=== PATIENT | male | born 1960 | race Caucasian/White ===

== ENCOUNTER 2025-02-16 19:08 | Emergency (ER) | payer MEDICARE, SELFPAY ==
[2025-02-16] VITALS (14 sets, daily range): BP systolic 112–137; BP diastolic 52–67; PULSE 75–96; RESP 10–35; TEMP 36.2; O2SAT 93–98; BMI 30.4
--- NOTE | 2025-02-16 19:47 | ED.SYNCOPE ---
HPI - Syncope <Armando Zimmer MD - Last Filed: 02/19/25 08:53> General Chief Complaint: Unresponsive Stated Complaint: OD, narcan, GCS 14 Time Seen by Provider: 02/16/25 19:09 Source: EMS Mode of arrival: EMS History of Present Illness HPI narrative: Patient brought in by ambulance from patient's local storage facility. Blood sugar 250. Patient does not recall any chest pain abdominal pain back pain headache or dizziness prior to syncope. Denies any injury from the syncopal episode. Patient did awake with Narcan. Patient denies any use and opiate use. However had history of opiate abuse. 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 He said 1 month ago he was at [facility] for pneumonia. Patient in no distress at this time. Related Data Allergies Allergy/AdvReac Type Severity Reaction Status Date / Time No Known Drug Allergies Allergy Verified 02/16/25 19:22 Review of Systems <Armando Zimmer MD - Last Filed: 02/19/25 08:53> Review of Systems Narrative: GENERAL: Negative chills, fatigue, malaise, fever, sweats. HEENT: Negative sinus pain, ear pain, sore throat RESPIRATORY: Negative dyspnea, cough CARDIOVASCULAR: Negative chest pain, palpitations, positive syncope GASTROINTESTINAL: Negative vomiting, nausea, abdominal pain : Negative dysuria, frequency, hematuria MUSCULOSKELETAL: Negative muscle or bony pain SKIN: Negative rash, skin lesions NEUROLOGIC: Negative weakness, numbness ROS Unobtainable: All systems reviewed & are unremarkable except as noted in HPI and below Patient History <Armando Zimmer MD - Last Filed: 02/19/25 08:53> Social History Smoking Status: Current every day smoker Smoking Status: Current every day smoker Exam <Armando Zimmer MD - Last Filed: 02/19/25 08:53> Narrative Exam Narrative: GENERAL: in no distress, not toxic not dyspneic HEAD: Normocephalic. EYES: Pupils equal round ENT: Mucous membranes moist. NECK: Trachea midline. CARDIOVASCULAR: Regular rate and rhythm RESPIRATORY: Clear to auscultation. Breath sounds equal bilaterally. No wheezes, rales, or rhonchi. GASTROINTESTINAL: Abdomen soft, non-tender BACK: No flank tenderness. EXTREMITIES: No gross deformities. NEURO: AOx4. 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 Elevate each leg without drift. Fast exam is negative SKIN: Warm and dry PSYCH: Not anxious, is cooperative Initial Vital Signs Initial Vital Signs: Vital Signs Temperature 97.1 F L 02/16/25 19:11 Pulse Rate 82 02/16/25 19:11 Respiratory Rate 16 02/16/25 19:11 Blood Pressure 117/52 L 02/16/25 19:11 Pulse Oximetry 94 02/16/25 19:11 Oxygen Delivery Method Room Air 02/16/25 19:11 <Isabel Klein DO - Last Filed: 02/17/25 04:40> Initial Vital Signs Initial Vital Signs: Vital Signs Temperature 97.1 F L 02/16/25 19:11 Pulse Rate 82 02/16/25 19:11 Respiratory Rate 16 02/16/25 19:11 Blood Pressure 117/52 L 02/16/25 19:11 Pulse Oximetry 94 02/16/25 19:11 Oxygen Delivery Method Room Air 02/16/25 19:11 Course <Armando Zimmer MD - Last Filed: 02/19/25 08:53> Orders Ordered: Discontinued Medications Sodium Chloride (Normal Saline 0.9%) 1,000 mls @ 1,000 mls/hr IV BOLUS ONE Stop: 02/16/25 22:27 Last Infusion: 02/16/25 22:43 Dose: Infused Documented By: Admin: 02/16/25 21:33 Dose: 1,000 mls/hr Documented By: JEREMIAS Naloxone HCl (Naloxone 4 Mg Nasal [place]) 4 mg MISC DIRECTED ONE Stop: 02/17/25 03:30 Last Admin: 02/17/25 03:35 Dose: 4 mg Documented By: OLIVIER Ondansetron HCl (Ondansetron 4 Mg/2 Ml Inj) 4 mg IV NOW ONE Stop: 02/16/25 20:04 Last Admin: 02/16/25 20:15 Dose: 4 mg Documented By: JEREMIAS Prochlorperazine (Prochlorperazine 10 Mg/2 Ml Vial) 10 mg IV NOW ONE Stop: 02/16/25 22:42 Last Admin: 02/16/25 22:45 Dose: 10 mg Documented By: JEREMIAS Vital Signs Vital signs: Vital Signs - 8 hr 02/16/25 21:00 02/16/25 21:00 02/16/25 21:30 Pulse Rate 81 Respiratory Rate 10 L Blood Pressure 129/59 L 125/55 L Pulse Oximetry 98 Oxygen Delivery Method 02/16/25 21:30 02/16/25 22:00 02/16/25 22:00 Pulse Rate 78 89 Respiratory Rate 12 12 Blood Pressure 130/59 L Pulse Oximetry 96 98 Oxygen Delivery Method 02/16/25 22:30 02/16/25 22:30 02/16/25 22:45 Pulse Rate 75 75 Respiratory Rate 21 Blood Pressure 137/65 137/65 Pulse Oximetry 96 Oxygen Delivery Method Room Air 02/16/25 23:00 02/16/25 23:30 02/16/25 23:51 Pulse Rate 96 H 77 Respiratory Rate 35 H 12 Blood Pressure 115/67 Pulse Oximetry 93 96 Oxygen Delivery Method 02/16/25 23:51 02/17/25 00:00 02/17/25 00:00 Pulse Rate 90 86 Respiratory Rate 15 11 L Blood Pressure 109/62 Pulse Oximetry 96 94 Oxygen Delivery Method 02/17/25 00:30 02/17/25 00:30 02/17/25 01:00 Pulse Rate 87 Respiratory Rate 14 Blood Pressure 107/57 L 99/69 Pulse Oximetry 93 Oxygen Delivery Method 02/17/25 01:00 02/17/25 01:30 02/17/25 01:31 Pulse Rate 98 H 99 H Respiratory Rate 19 17 Blood Pressure 127/70 Pulse Oximetry 93 94 Oxygen Delivery Method Room Air 02/17/25 01:31 02/17/25 02:00 02/17/25 02:00 Pulse Rate 95 H 86 Respiratory Rate 32 H 11 L Blood Pressure 111/63 Pulse Oximetry 95 93 Oxygen Delivery Method Room Air 02/17/25 02:30 02/17/25 02:30 02/17/25 03:00 Pulse Rate 100 H Respiratory Rate 21 Blood Pressure 116/67 126/62 Pulse Oximetry 93 Oxygen Delivery Method Room Air 02/17/25 03:00 02/17/25 03:30 02/17/25 03:30 Pulse Rate 89 88 Respiratory Rate 11 L Blood Pressure 111/59 L Pulse Oximetry 93 94 Oxygen Delivery Method Room Air Room Air <Isabel Klein, DO - Last Filed: 02/17/25 04:40> Orders Ordered: Discontinued Medications Sodium Chloride (Normal Saline 0.9%) 1,000 mls @ 1,000 mls/hr IV BOLUS ONE Stop: 02/16/25 22:27 Last Infusion: 02/16/25 22:43 Dose: Infused Documented By: Admin: 02/16/25 21:33 Dose: 1,000 mls/hr Documented By: JEREMIAS Naloxone HCl (Naloxone 4 Mg Nasal [place]) 4 mg MISC DIRECTED ONE Stop: 02/17/25 03:30 Last Admin: 02/17/25 03:35 Dose: 4 mg Documented By: OLIVIER Ondansetron HCl (Ondansetron 4 Mg/2 Ml Inj) 4 mg IV NOW ONE Stop: 02/16/25 20:04 Last Admin: 02/16/25 20:15 Dose: 4 mg Documented By: JEREMIAS Prochlorperazine (Prochlorperazine 10 Mg/2 Ml Vial) 10 mg IV NOW ONE Stop: 02/16/25 22:42 Last Admin: 02/16/25 22:45 Dose: 10 mg Documented By: JEREMIAS Vital Signs Vital signs: Vital Signs - 8 hr 02/16/25 21:00 02/16/25 21:00 02/16/25 21:30 Pulse Rate 81 Respiratory Rate 10 L Blood Pressure 129/59 L 125/55 L Pulse Oximetry 98 Oxygen Delivery Method 02/16/25 21:30 02/16/25 22:00 02/16/25 22:00 Pulse Rate 78 89 Respiratory Rate 12 12 Blood Pressure 130/59 L Pulse Oximetry 96 98 Oxygen Delivery Method 02/16/25 22:30 02/16/25 22:30 02/16/25 22:45 Pulse Rate 75 75 Respiratory Rate 21 Blood Pressure 137/65 137/65 Pulse Oximetry 96 Oxygen Delivery Method Room Air 02/16/25 23:00 02/16/25 23:30 02/16/25 23:51 Pulse Rate 96 H 77 Respiratory Rate 35 H 12 Blood Pressure 115/67 Pulse Oximetry 93 96 Oxygen Delivery Method 02/16/25 23:51 02/17/25 00:00 02/17/25 00:00 Pulse Rate 90 86 Respiratory Rate 15 11 L Blood Pressure 109/62 Pulse Oximetry 96 94 Oxygen Delivery Method 02/17/25 00:30 02/17/25 00:30 02/17/25 01:00 Pulse Rate 87 Respiratory Rate 14 Blood Pressure 107/57 L 99/69 Pulse Oximetry 93 Oxygen Delivery Method 02/17/25 01:00 02/17/25 01:30 02/17/25 01:31 Pulse Rate 98 H 99 H Respiratory Rate 19 17 Blood Pressure 127/70 Pulse Oximetry 93 94 Oxygen Delivery Method Room Air 02/17/25 01:31 02/17/25 02:00 02/17/25 02:00 Pulse Rate 95 H 86 Respiratory Rate 32 H 11 L Blood Pressure 111/63 Pulse Oximetry 95 93 Oxygen Delivery Method Room Air 02/17/25 02:30 02/17/25 02:30 02/17/25 03:00 Pulse Rate 100 H Respiratory Rate 21 Blood Pressure 116/67 126/62 Pulse Oximetry 93 Oxygen Delivery Method Room Air 02/17/25 03:00 02/17/25 03:30 02/17/25 03:30 Pulse Rate 89 88 Respiratory Rate 11 L Blood Pressure 111/59 L Pulse Oximetry 93 94 Oxygen Delivery Method Room Air Room Air MDM - Syncope <Armanod Zimmer MD - Last Filed: 02/19/25 08:53> Lab Data 02/16/25 19:00 02/16/25 19:00 Labs: Lab Results 02/16/25 02/16/25 02/16/25 Range/Units 19:00 20:37 23:20 WBC 7.9 (4.5-11.0) X10^3/uL RBC 4.34 L (4.5-5.9) X10^6/uL Hgb 14.2 (13.5-17.5) g/dL Hct 41.7 (41-53) % MCV 96.1 (80-100) fL MCH 32.6 (26-34) PG MCHC 33.9 (30-36) % RDW 12.8 (11.6-14.8) % Plt Count 212 (150-400) X10^3/uL Neut % (Auto) 60.0 (50-75) % Lymph % (Auto) 32.9 (25-40) % [place] % (Auto) 5.5 (3-14) % Eos % (Auto) 0.9 L (2-4) % Baso % (Auto) 0.7 (0-2) % Neut # (Auto) 4800 (7964-8626) /uL Lymph # (Auto) 2600 (4707-0202) /uL [place] # (Auto) 400 (0-900) /uL Eos # (Auto) 100 (0-450) /uL Baso # (Auto) 100 (0-100) /uL PT 10.9 (9.4-12.5) SECONDS INR 1.0 (0.9-1.3) APTT 23 L (25.1-36.5) SECONDS Sodium 139 (137-145) mmol/L Potassium 3.8 (3.4-5.1) mmol/L Chloride 99 (98-107) mmol/L Carbon Dioxide 20 L (22-32) mmol/L BUN 12 (9-20) mg/dL Creatinine 1.54 H (0.66-1.25) mg/dL Estimated GFR 51 L (>60) mL/min BUN/Creatinine Ratio 7.8 (6-22) Glucose 256 H (70-99) mg/dL Calcium 9.4 (8.4-10.2) mg/dL Total Bilirubin 0.5 (0.2-1.3) mg/dL AST 44 (17-59) IU/L ALT 36 (<50) IU/L Alkaline Phosphatase 64 (38-126) U/L Ammonia 17 (9-30) umol/L Total Creatine Kinase 94 (55-170) U/L Troponin I < 0.012 (0.01-0.034) ng/mL Total Protein 7.5 (6.3-8.2) g/dL Albumin 4.6 (3.5-5.0) g/dL Globulin 2.9 (1.7-4.1) g/dL Albumin/Globulin Ratio 1.6 (1.0-2.8) Urine Color Yellow Urine Appearance Clear Urine pH 6.5 (4.5-8.0) Ur Specific [place] 1.015 (1.000-1.035) Urine Protein Negative (Negative) Urine Glucose (UA) Negative (Negative) g/dL Urine Ketones 1+ H (NEGATIVE) Urine Occult Blood Negative (Negative) Urine Nitrate Negative (Negative) Urine Bilirubin Negative (NEGATIVE) Urine Urobilinogen 0.2 (0.2) E.U./dL Ur Leukocyte Esterase Negative (NEGATIVE) Urine RBC None seen (0-5/HPF) Urine WBC 0-1/hpf (0-5/HPF) Ur Squamous Epith Cells 0-1 /hpf (0-5/HPF) Urine Bacteria Occasional (0-1) (None) Ur Culture Indicated? Cult not indicated Vol Urine Centrifuged Low vol <10ml (spun) A U Opiates 300ng/mL cut (Negative) Ur Oxycodone Screen (Negative) Urine Methadone Screen (Negative) Acetaminophen < 10 (10-30) ug/mL Ur Barbiturates Screen (Negative) U Tricyclic Antidepress (Negative) Ur Phencyclidine Scrn (Negative) Ur Amphetamines Screen (Negative) U Methamphetamines Scrn (Negative) Ur MDMA Scrn (Ecstasy) (Negative) U Benzodiazepines Scrn (Negative) Urine Cocaine Screen (Negative) U Marijuana (THC) Screen (Negative) Urine Specific [place] (Normal) Ethyl Alcohol < 10 (<10) mg/dL Ur Creatinine (Normal) 02/17/25 Range/Units 01:00 WBC (4.5-11.0) X10^3/uL RBC (4.5-5.9) X10^6/uL Hgb (13.5-17.5) g/dL Hct (41-53) % MCV (80-100) fL MCH (26-34) PG MCHC (30-36) % RDW (11.6-14.8) % Plt Count (150-400) X10^3/uL Neut % (Auto) (50-75) % Lymph % (Auto) (25-40) % [place] % (Auto) (3-14) % Eos % (Auto) (2-4) % Baso % (Auto) (0-2) % Neut # (Auto) (6559-4448) /uL Lymph # (Auto) (5791-1463) /uL [place] # (Auto) (0-900) /uL Eos # (Auto) (0-450) /uL Baso # (Auto) (0-100) /uL PT (9.4-12.5) SECONDS INR (0.9-1.3) APTT (25.1-36.5) SECONDS Sodium (137-145) mmol/L Potassium (3.4-5.1) mmol/L Chloride (98-107) mmol/L Carbon Dioxide (22-32) mmol/L BUN (9-20) mg/dL Creatinine (0.66-1.25) mg/dL Estimated GFR (>60) mL/min BUN/Creatinine Ratio (6-22) Glucose (70-99) mg/dL Calcium (8.4-10.2) mg/dL Total Bilirubin (0.2-1.3) mg/dL AST (17-59) IU/L ALT (<50) IU/L Alkaline Phosphatase (38-126) U/L Ammonia (9-30) umol/L Total Creatine Kinase (55-170) U/L Troponin I (0.01-0.034) ng/mL Total Protein (6.3-8.2) g/dL Albumin (3.5-5.0) g/dL Globulin (1.7-4.1) g/dL Albumin/Globulin Ratio (1.0-2.8) Urine Color Urine Appearance Urine pH Normal (4.5-8.0) Ur Specific [place] (1.000-1.035) Urine Protein (Negative) Urine Glucose (UA) (Negative) g/dL Urine Ketones (NEGATIVE) Urine Occult Blood (Negative) Urine Nitrate (Negative) Urine Bilirubin (NEGATIVE) Urine Urobilinogen (0.2) E.U./dL Ur Leukocyte Esterase (NEGATIVE) Urine RBC (0-5/HPF) Urine WBC (0-5/HPF) Ur Squamous Epith Cells (0-5/HPF) Urine Bacteria (None) Ur Culture Indicated? Vol Urine Centrifuged U Opiates 300ng/mL cut Negative (Negative) Ur Oxycodone Screen Negative (Negative) Urine Methadone Screen Negative (Negative) Acetaminophen (10-30) ug/mL Ur Barbiturates Screen Negative (Negative) U Tricyclic Antidepress Negative (Negative) Ur Phencyclidine Scrn Negative (Negative) Ur Amphetamines Screen Positive H (Negative) U Methamphetamines Scrn Positive H (Negative) Ur MDMA Scrn (Ecstasy) Negative (Negative) U Benzodiazepines Scrn Negative (Negative) Urine Cocaine Screen Negative (Negative) U Marijuana (THC) Screen Negative (Negative) Urine Specific [place] Normal (Normal) Ethyl Alcohol (<10) mg/dL Ur Creatinine Normal (Normal) Imaging Data CT scan - head: Radiologist's Impression: [address] [address] [address] Scan Report Signed Patient: Omar Jeffries MR#: [id number] : 1960 Acct:[id number] Age/Sex: 64 / M Date of Service: 02/16/25 Loc: ED Accession Number: [id number] Procedure: CT head/brain wo con Ordering Provider: Armando Zimmer MD PROCEDURE: CT HEAD/BRAIN WO CON INDICATIONS: Fall/syncope TECHNIQUE: Noncontrast 4.5 mm thick angled axial sections acquired from the foramen magnum to the vertex, with coronal and sagittal reformats. For radiation dose reduction, the following was used: automated exposure control, adjustment of mA and/or kV according to patient size. COMPARISON: [facility], CT, CT HEAD WITHOUT CONTRAST, 06/11/2024, 20:14. FINDINGS: Image quality: Diagnostic. CSF spaces: Basal cisterns are patent. No extra-axial fluid collections. The ventricles are symmetric in size and shape. Brain: No intracranial bleeds or mass effect. There is cerebral volume loss, with resultant ventricular and sulcal prominence. There are periventricular and deep white matter chronic small vessel ischemic changes. There is intracranial internal carotid artery atherosclerosis. Skull and face: Calvarium and visualized facial bones appear intact, without suspicious lesions. Sinuses: Visualized sinuses and mastoids are clear. IMPRESSION: 1. CT head without acute intracranial abnormalities or acute calvarial fractures. 2. Age-related senescent changes and sequela of chronic small vessel ischemic disease. Dictated by: Kelvin Lyn M.D. on 02/16/2025 at 20:39 Approved by: Kelvin Lyn M.D. on 02/16/2025 at 20:40 CT scan - chest: Radiologist's Impression: [place] [address] CT Scan Report Signed Patient: Omar Jeffries MR#: [id number] : 1960 Acct:[id number] Age/Sex: 64 / M Date of Service: 02/16/25 Loc: ED Accession Number: [id number] Procedure: CT angio chest PE protocol Ordering Provider: Armando Zimmer MD PROCEDURE: CT ANGIO CHEST PE PROTOCOL INDICATIONS: Syncope/shortness of breath TECHNIQUE: After the administration of intravenous contrast, 2 mm thick sections acquired from the pulmonary apices to the posterior costophrenic angles. 3-dimensional maximum intensity projection (MIP) coronal and sagittal reformats were then acquired through the thorax. For radiation dose reduction, the following was used: automated exposure control, adjustment of mA and/or kV according to patient size. COMPARISON: [facility], CT, CT CHEST WITHOUT CONTRAST, 06/04/2023, 1:12. FINDINGS: Image quality: There is suboptimal timing of contrast bolus limiting evaluation of the pulmonary arteries. The pulmonary arteries were adequately visualized to level of the proximal segmental pulmonary arteries. Pulmonary arteries: Pulmonary arteries are normal in size, and demonstrate no intraluminal filling defects to suggest central pulmonary embolism. Lower Neck: No enlarged lymph nodes. Thyroid: No thyroid nodules which require sonographic follow up, per consensus guidelines. Axillae: No enlarged lymph nodes. Chest Wall: Unremarkable. Bones: Age-indeterminate but likely subacute to chronic fracture of the mid sternum. No substernal fluid collection seen. No adjacent acute inflammatory changes. Lungs and Pleura: No pneumothorax or pleural effusions. Moderate bibasilar atelectasis. No suspicious pulmonary nodules. No mass lesions. Heart: Heart size is enlarged. No pericardial effusion. Thoracic Vessels: No aortic aneurysm. Mediastinum and Brynn: No enlarged lymph nodes. Esophagus: No wall thickening. Small hiatal hernia. Small amount of fluid in the distal esophagus. Upper Abdomen: Status post cholecystectomy. Other visualized upper abdomen solid organs and bowel loops appear unremarkable. IMPRESSION: Suboptimal timing of intravenous contrast bolus. No central pulmonary emboli visualized. No evidence for acute right-sided heart strain. Age-indeterminate but likely subacute to chronic fracture of the mid sternum. No acute inflammatory changes of the adjacent soft tissues. Moderate bilateral dependent atelectasis. Cardiomegaly. Small hiatal hernia with layering fluid in the distal esophagus. Other chronic/non-acute findings as above. Dictated by: Kelvin Lyn M.D. on 02/16/2025 at 20:43 Approved by: Kelvin Lyn M.D. on 02/16/2025 at 20:50 CT - cervical spine: Radiologist's Impression: [address] [address] [address] Scan Report Signed Patient: Omar Jeffries MR#: [id number] : 1960 Acct:[id number] Age/Sex: 64 / M Date of Service: 02/16/25 Loc: ED Accession Number: [id number] Procedure: CT cervical spine wo con Ordering Provider: Armando Zimmer MD PROCEDURE: CT CERVICAL SPINE WO CON INDICATIONS: Fall/syncope Fall/syncope TECHNIQUE: Noncontrast 3 mm thick sections acquired from the skull base to the T4 level. Sagittal and coronal reformats were then constructed. For radiation dose reduction, the following was used: automated exposure control, adjustment of mA and/or kV according to patient size. COMPARISON: [facility], CT, CT CERVICAL SPINE WITHOUT CONTRAST, 06/11/2024, 15:52. FINDINGS: Image quality: Diagnostic. Bones: No acute fractures or dislocations. No acute compression fractures of the vertebral bodies. Craniocervical junction is intact. C1-C2 relationship is preserved. Visualized superior ribs are intact. Stable appearance of moderate multilevel cervical spondylosis. Soft tissues: Prevertebral soft tissues are normal in thickness. No paravertebral hematomas. No apical pneumothoraces. IMPRESSION: No displaced fracture or traumatic subluxation. Stable appearance of moderate multilevel cervical spondylosis. Dictated by: Kelvin Lyn M.D. on 02/16/2025 at 20:40 Approved by: Kelvin Lyn M.D. on 02/16/2025 at 20:43 [facility] Narrative Medical decision making narrative: Patient brought in by ambulance from patient's local storage facility. Blood sugar 250. Patient does not recall any chest pain abdominal pain back pain headache or dizziness prior to syncope. Denies any injury from the syncopal episode. Patient did awake with Narcan. Patient denies any use and opiate use. However had history of opiate abuse. 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 He said 1 month ago he was at [facility] for pneumonia. Patient in no distress at this time. MDM After history and exam, CBC CMP drug screen alcohol level PT PTT INR CT head CT angiogram chest urinalysis cardiac cath lab technologist troponin EKG Differential considered: Includes but not limited to opiate overdose hypoglycemia pulmonary embolism stroke Medical records reviewed: No recent visit here for this complaint. Lab Test results independently reviewed as above. Pertinent findings: WBC 7.9 hemoglobin 14.2 INR 1.0 sodium 139 potassium 3.8 BUN 12 creatinine 1.54 GFR 51 alcohol negative Tylenol negative Independently reviewed EKG sinus rhythm rate [address]-elevation or depression. There is incomplete right bundle branch block Imaging studies independently reviewed: CT cervical spine no acute finding. CT head no acute finding CT chest no pulmonary embolism Consultations: Re-evaluations: 12:35 a.m.. Mesha: Sign out to Dr Klein, patient will need re-evaluation. Drug screen is pending. Will need reassessment with cognition. Discussion: Diagnosis: <Isabel Ernie, DO - Last Filed: 02/17/25 04:40> Lab Data Labs: Lab Results 02/16/25 02/16/25 02/16/25 Range/Units 19:00 20:37 23:20 WBC 7.9 (4.5-11.0) X10^3/uL RBC 4.34 L (4.5-5.9) X10^6/uL Hgb 14.2 (13.5-17.5) g/dL Hct 41.7 (41-53) % MCV 96.1 (80-100) fL MCH 32.6 (26-34) PG MCHC 33.9 (30-36) % RDW 12.8 (11.6-14.8) % Plt Count 212 (150-400) X10^3/uL Neut % (Auto) 60.0 (50-75) % Lymph % (Auto) 32.9 (25-40) % [place] % (Auto) 5.5 (3-14) % Eos % (Auto) 0.9 L (2-4) % Baso % (Auto) 0.7 (0-2) % Neut # (Auto) 4800 (2186-3485) /uL Lymph # (Auto) 2600 (7944-6709) /uL [place] # (Auto) 400 (0-900) /uL Eos # (Auto) 100 (0-450) /uL Baso # (Auto) 100 (0-100) /uL PT 10.9 (9.4-12.5) SECONDS INR 1.0 (0.9-1.3) APTT 23 L (25.1-36.5) SECONDS Sodium 139 (137-145) mmol/L Potassium 3.8 (3.4-5.1) mmol/L Chloride 99 (98-107) mmol/L Carbon Dioxide 20 L (22-32) mmol/L BUN 12 (9-20) mg/dL Creatinine 1.54 H (0.66-1.25) mg/dL Estimated GFR 51 L (>60) mL/min BUN/Creatinine Ratio 7.8 (6-22) Glucose 256 H (70-99) mg/dL Calcium 9.4 (8.4-10.2) mg/dL Total Bilirubin 0.5 (0.2-1.3) mg/dL AST 44 (17-59) IU/L ALT 36 (<50) IU/L Alkaline Phosphatase 64 (38-126) U/L Ammonia 17 (9-30) umol/L Total Creatine Kinase 94 (55-170) U/L Troponin I < 0.012 (0.01-0.034) ng/mL Total Protein 7.5 (6.3-8.2) g/dL Albumin 4.6 (3.5-5.0) g/dL Globulin 2.9 (1.7-4.1) g/dL Albumin/Globulin Ratio 1.6 (1.0-2.8) Urine Color Yellow Urine Appearance Clear Urine pH 6.5 (4.5-8.0) Ur Specific [place] 1.015 (1.000-1.035) Urine Protein Negative (Negative) Urine Glucose (UA) Negative (Negative) g/dL Urine Ketones 1+ H (NEGATIVE) Urine Occult Blood Negative (Negative) Urine Nitrate Negative (Negative) Urine Bilirubin Negative (NEGATIVE) Urine Urobilinogen 0.2 (0.2) E.U./dL Ur Leukocyte Esterase Negative (NEGATIVE) Urine RBC None seen (0-5/HPF) Urine WBC 0-1/hpf (0-5/HPF) Ur Squamous Epith Cells 0-1 /hpf (0-5/HPF) Urine Bacteria Occasional (0-1) (None) Ur Culture Indicated? Cult not indicated Vol Urine Centrifuged Low vol <10ml (spun) A U Opiates 300ng/mL cut (Negative) Ur Oxycodone Screen (Negative) Urine Methadone Screen (Negative) Acetaminophen < 10 (10-30) ug/mL Ur Barbiturates Screen (Negative) U Tricyclic Antidepress (Negative) Ur Phencyclidine Scrn (Negative) Ur Amphetamines Screen (Negative) U Methamphetamines Scrn (Negative) Ur MDMA Scrn (Ecstasy) (Negative) U Benzodiazepines Scrn (Negative) Urine Cocaine Screen (Negative) U Marijuana (THC) Screen (Negative) Urine Specific [place] (Normal) Ethyl Alcohol < 10 (<10) mg/dL Ur Creatinine (Normal) 02/17/25 Range/Units 01:00 WBC (4.5-11.0) X10^3/uL RBC (4.5-5.9) X10^6/uL Hgb (13.5-17.5) g/dL Hct (41-53) % MCV (80-100) fL MCH (26-34) PG MCHC (30-36) % RDW (11.6-14.8) % Plt Count (150-400) X10^3/uL Neut % (Auto) (50-75) % Lymph % (Auto) (25-40) % [place] % (Auto) (3-14) % Eos % (Auto) (2-4) % Baso % (Auto) (0-2) % Neut # (Auto) (9395-9196) /uL Lymph # (Auto) (8015-6862) /uL [place] # (Auto) (0-900) /uL Eos # (Auto) (0-450) /uL Baso # (Auto) (0-100) /uL PT (9.4-12.5) SECONDS INR (0.9-1.3) APTT (25.1-36.5) SECONDS Sodium (137-145) mmol/L Potassium (3.4-5.1) mmol/L Chloride (98-107) mmol/L Carbon Dioxide (22-32) mmol/L BUN (9-20) mg/dL Creatinine (0.66-1.25) mg/dL Estimated GFR (>60) mL/min BUN/Creatinine Ratio (6-22) Glucose (70-99) mg/dL Calcium (8.4-10.2) mg/dL Total Bilirubin (0.2-1.3) mg/dL AST (17-59) IU/L ALT (<50) IU/L Alkaline Phosphatase (38-126) U/L Ammonia (9-30) umol/L Total Creatine Kinase (55-170) U/L Troponin I (0.01-0.034) ng/mL Total Protein (6.3-8.2) g/dL Albumin (3.5-5.0) g/dL Globulin (1.7-4.1) g/dL Albumin/Globulin Ratio (1.0-2.8) Urine Color Urine Appearance Urine pH Normal (4.5-8.0) Ur Specific [place] (1.000-1.035) Urine Protein (Negative) Urine Glucose (UA) (Negative) g/dL Urine Ketones (NEGATIVE) Urine Occult Blood (Negative) Urine Nitrate (Negative) Urine Bilirubin (NEGATIVE) Urine Urobilinogen (0.2) E.U./dL Ur Leukocyte Esterase (NEGATIVE) Urine RBC (0-5/HPF) Urine WBC (0-5/HPF) Ur Squamous Epith Cells (0-5/HPF) Urine Bacteria (None) Ur Culture Indicated? Vol Urine Centrifuged U Opiates 300ng/mL cut Negative (Negative) Ur Oxycodone Screen Negative (Negative) Urine Methadone Screen Negative (Negative) Acetaminophen (10-30) ug/mL Ur Barbiturates Screen Negative (Negative) U Tricyclic Antidepress Negative (Negative) Ur Phencyclidine Scrn Negative (Negative) Ur Amphetamines Screen Positive H (Negative) U Methamphetamines Scrn Positive H (Negative) Ur MDMA Scrn (Ecstasy) Negative (Negative) U Benzodiazepines Scrn Negative (Negative) Urine Cocaine Screen Negative (Negative) U Marijuana (THC) Screen Negative (Negative) Urine Specific [place] Normal (Normal) Ethyl Alcohol (<10) mg/dL Ur Creatinine Normal (Normal) MDM Narrative Medical decision making narrative: Patient brought in by ambulance from patient's local storage facility. Blood sugar 250. Patient does not recall any chest pain abdominal pain back pain headache or dizziness prior to syncope. Denies any injury from the syncopal episode. Patient did awake with Narcan. Patient denies any use and opiate use. However had history of opiate abuse. 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 He said 1 month ago he was at [facility] for pneumonia. Patient in no distress at this time. MDM After history and exam, CBC CMP drug screen alcohol level PT PTT INR CT head CT angiogram chest urinalysis cardiac cath lab technologist troponin EKG Differential considered: Includes but not limited to opiate overdose hypoglycemia pulmonary embolism stroke Medical records reviewed: No recent visit here for this complaint. Lab Test results independently reviewed as above. Pertinent findings: WBC 7.9 hemoglobin 14.2 INR 1.0 sodium 139 potassium 3.8 BUN 12 creatinine 1.54 GFR 51 alcohol negative Tylenol negative Independently reviewed EKG sinus rhythm rate [address]-elevation or depression. There is incomplete right bundle branch block Imaging studies independently reviewed: CT cervical spine no acute finding. CT head no acute finding CT chest no pulmonary embolism Consultations: Re-evaluations: 12:35 a.m.. Mesha: Sign out to Dr Klein, patient will need re-evaluation. Drug screen is pending. Will need reassessment with cognition. Discussion: Diagnosis: 0100 Dr. Klein-patient is signed out to me by Dr. Barrios I have seen evaluated patient myself. He is awake alert oriented sitting at bedside eating and drinking. Urine drug screen is positive for amphetamines and methamphetamines however he did not test positive for opiates and responded to Narcan. He has had complete workup in the emergency department. Blood work overall reassuring, creatinine slightly elevated 1.54 unknown what his baseline is. No leukocytosis troponin negative electrolytes within normal limits, alcohol and Tylenol are negative. Full body imaging has been reviewed head neck chest abdomen and pelvis all report no findings Patient reports that he has had sudden onset of spinning nausea vomiting. He does not have any prior history of vertigo. He denies any drug use whatsoever especially opiates. I have made him aware of his testing results. He has been monitored in the ED for 8 hours he has not required any further dosing of Narcan. Discharge Plan Departure Patient Disposition: Home Clinical Impression: Accidental drug overdose Qualifiers: Encounter type: initial encounter Qualified Code(s): T50.901A - Poisoning by unspecified drugs, medicaments and biological substances, accidental (unintentional), initial encounter Instructions: DI for Drug Overdose in Adults, Naloxone for Opiate Overdose - [facility] Activity Restrictions/Additional Instructions: *You have been diagnosed with accidental drug overdose *What to do: *Continue to take medications as directed *Follow up with your primary care provider in 2-3 days or call [phone] *Return to ER if you should have or any new, worsening or concerning symptoms Stand Alone Forms: Patient Portal/API, Naloxone Standing Order [place]
--- NOTE | 2025-02-16 19:51 | DI.CT.S_ITS ---
PROCEDURE: CT HEAD/BRAIN WO CON INDICATIONS: Fall/syncope TECHNIQUE: Noncontrast 4.5 mm thick angled axial sections acquired from the foramen magnum to the vertex, with coronal and sagittal reformats. For radiation dose reduction, the following was used: automated exposure control, adjustment of mA and/or kV according to patient size. COMPARISON: [facility], CT, CT HEAD WITHOUT CONTRAST, 06/11/2024, 20:14. FINDINGS: Image quality: Diagnostic. CSF spaces: Basal cisterns are patent. No extra-axial fluid collections. The ventricles are symmetric in size and shape. Brain: No intracranial bleeds or mass effect. There is cerebral volume loss, with resultant ventricular and sulcal prominence. There are periventricular and deep white matter chronic small vessel ischemic changes. There is intracranial internal carotid artery atherosclerosis. Skull and face: Calvarium and visualized facial bones appear intact, without suspicious lesions. Sinuses: Visualized sinuses and mastoids are clear. IMPRESSION: 1. CT head without acute intracranial abnormalities or acute calvarial fractures. 2. Age-related senescent changes and sequela of chronic small vessel ischemic disease. Dictated by: Kelvin Lyn M.D. on 02/16/2025 at 20:39 Approved by: Kelvin Lyn M.D. on 02/16/2025 at 20:40
--- NOTE | 2025-02-16 19:51 | DI.CT.S_ITS ---
PROCEDURE: CT CERVICAL SPINE WO CON INDICATIONS: Fall/syncope Fall/syncope TECHNIQUE: Noncontrast 3 mm thick sections acquired from the skull base to the T4 level. Sagittal and coronal reformats were then constructed. For radiation dose reduction, the following was used: automated exposure control, adjustment of mA and/or kV according to patient size. COMPARISON: [facility], CT, CT CERVICAL SPINE WITHOUT CONTRAST, 06/11/2024, 15:52. FINDINGS: Image quality: Diagnostic. Bones: No acute fractures or dislocations. No acute compression fractures of the vertebral bodies. Craniocervical junction is intact. C1-C2 relationship is preserved. Visualized superior ribs are intact. Stable appearance of moderate multilevel cervical spondylosis. Soft tissues: Prevertebral soft tissues are normal in thickness. No paravertebral hematomas. No apical pneumothoraces. IMPRESSION: No displaced fracture or traumatic subluxation. Stable appearance of moderate multilevel cervical spondylosis. Dictated by: Kelvin Lyn M.D. on 02/16/2025 at 20:40 Approved by: Kelvin Lyn M.D. on 02/16/2025 at 20:43
--- NOTE | 2025-02-16 20:00 | EKG_ITS ---
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
[2025-02-16 20:06] LABS: Add Manual Diff / Slide Review NO; Hematocrit 41.7 % (41-53); Hemoglobin 14.2 g/dL (13.5-17.5); Lymphocytes Absolute Auto 2600 /uL (1100-4500); Mean Corpuscular HGB Conc 33.9 % (30-36); Mean Corpuscular Hemoglobin 32.6 PG (26-34); Mean Corpuscular Volume 96.1 fL (80-100); Platelet Count 212 X10^3/uL (150-400)
[2025-02-16 20:09] LABS: INR 1.0 (0.9-1.3); Prothrombin Time 10.9 SECONDS (9.4-12.5)
[2025-02-16 20:12] LABS: PTT Partial Thromboplastin Tim 23 SECONDS (25.1-36.5)
[2025-02-16 20:14] LABS: Acetaminophen < 10 ug/mL (10-30); Creatine Kinase 94 U/L (55-170); Ethanol (ETOH) < 10 mg/dL (<10)
[2025-02-16] MEDS: ONDANSETRON 4 MG/2 ML INJ IV (20:15)
[2025-02-16 20:16] LABS: Alanine Aminotransferase 36 IU/L (<50); Albumin 4.6 g/dL (3.5-5.0); Albumin Globulin Ratio 1.6 (1.0-2.8); Alkaline Phosphatase 64 U/L (38-126); Blood Urea Nitrogen 12 mg/dL (9-20); Calcium 9.4 mg/dL (8.4-10.2); Carbon Dioxide 20 mmol/L (22-32); Chloride 99 mmol/L (98-107); Estimated Glomerular Filt Rate 51 mL/min (>60); Globulin 2.9 g/dL (1.7-4.1); Glucose 256 mg/dL (70-99); HEMOLYSIS 20 (0-50); Potassium 3.8 mmol/L (3.4-5.1); Sodium 139 mmol/L (137-145); Total Protein 7.5 g/dL (6.3-8.2)
[2025-02-16 20:26] LABS: Troponin I < 0.012 ng/mL (0.01-0.034)
[2025-02-16 20:53] LABS: Ammonia (NH3) 17 umol/L (9-30)
[2025-02-16] MEDS: SODIUM CHLORIDE 0.9% 1,000 ML 1000 ML IV (21:33)
[2025-02-16] MEDS: PROCHLORPERAZINE 10 MG/2 ML VIAL IV (22:45)
--- NOTE | 2025-02-16 23:09 | PC.NURSE ---
This RN in room to bladder scan patient after attempting to void, pt has 709ml PVR. pt states they have urinary retention due to prostate issues but he refuses to be catheterized. This RN explains the risks of his distended bladder and pt verbalizes understanding. Pt states that they would like promethazine for his reflux and nausea, patient then begins vomiting. This RN gets order from Provider Mesha for compazine see MAR
--- NOTE | 2025-02-16 23:16 | DI.CT.S_ITS ---
PROCEDURE: CT ABDOMEN PELVIS WO CON INDICATIONS: Abdominal pain TECHNIQUE: CT of the abdomen and pelvis was obtained without intravenous contrast. Coronal and sagittal reformats were performed. For radiation dose reduction, the following was used: automated exposure control, adjustment of mA and/or kV according to patient size. COMPARISON: [facility], CT, CT ABDOMEN PELVIS WITH CONTRAST, 01/13/2025, 23:13. [facility], CT, CT ANGIO CHEST PE PROTOCOL, 02/16/2025, 19:58. FINDINGS: Image quality: Diagnostic. Lower Chest: Bibasilar atelectasis improved. Increased dependent opacities of the posterior left upper lobe not seen on the prior study likely representing atelectasis. Small hiatal hernia. ABDOMEN: Liver: No contour-deforming mass. Gallbladder: Surgically absent. Biliary ducts: No biliary dilation. Pancreas: No ductal dilation. Spleen: Size is within normal limits. Adrenal Glands: No adrenal nodules. Kidneys and Ureters: No hydronephrosis. No contour-deforming mass. Left renal cyst. Bilateral ureters are normal in course and caliber. Stomach and Bowel: Normal colonic caliber, without significant wall thickening. Moderate fecal burden seen in the ascending colon. Extensive scattered colonic diverticulosis without evidence for acute diverticulitis. No evidence for small bowel obstruction or associated inflammatory changes. The appendix is not definitively visualized. However, no secondary findings of acute inflammation are noted in the right lower quadrant. Peritoneum: No abnormal intraperitoneal fluid. No free air. Ventral Wall: There is a fat-containing umbilical hernia without acute inflammation. Abdominal Nodes: No retroperitoneal or mesenteric adenopathy by size criteria. Vessels: Aorta and inferior vena cava are normal in size. PELVIS: Pelvic Organs: Mild prostatomegaly. Bladder: There is a small left posterior urinary bladder wall diverticulum. Trabeculated urinary bladder wall, possibly related to sequela of chronic bladder outlet obstruction. Pelvic Nodes: No enlarged lymph nodes. Miscellaneous: No inguinal hernias are seen. Bones: No aggressive osseous abnormality. No acute vertebral body compression fractures. Multilevel spondylitic changes throughout the imaged spine. No suspicious osseous lesions. Stable chronic compression deformity at L5. IMPRESSION: CT abdomen and pelvis without acute abnormalities. There is moderate fecal burden seen in the ascending colon. Colonic diverticulosis without acute diverticulitis. Other chronic/non-acute findings as above. Dictated by: Kelvin Lyn M.D. on 02/16/2025 at 23:29 Approved by: Kelvin Lyn M.D. on 02/16/2025 at 23:38
[2025-02-17] VITALS (9 sets, daily range): BP systolic 99–127; BP diastolic 57–70; PULSE 86–100; RESP 11–32; O2SAT 93–95
[2025-02-17 00:04] LABS: Appearance Urine UA CLEAR; Bilirubin Urine UA NEGATIVE (NEGATIVE); Color Urine UA YELLOW; Glucose Urine UA NEGATIVE (Negative); Ketones Urine UA 1+ (NEGATIVE); Leukocyte Esterase Urine UA NEGATIVE (NEGATIVE); Nitrite Urine UA NEGATIVE (Negative); Occult Blood Urine UA NEGATIVE (Negative); Protein Urine UA NEGATIVE (Negative); Specific Gravity Urine UA 1.015 (1.000-1.035); Urobilinogen Urine UA 0.2 E.U./dL (0.2); pH Urine UA 6.5 (4.5-8.0)
[2025-02-17 00:16] LABS: Culture Indicated Urine Cult Not Indicated
--- NOTE | 2025-02-17 01:15 | PC.NURSE ---
Pt given 1/2 PB&J, 1 cartoon whole milk, 1 slice of snack cheese.
[2025-02-17 01:20] LABS: UR Morphine/Opiate cutoff 300 Negative (Negative); Ur Specific Gravity Normal (Normal); Urine MDMA Negative (Negative); Urine Methamphetamines Positive (Negative); Urine Tetrahydrocannabinol Negative (Negative); Urine Tricyclic Antidepressant Negative (Negative)
[2025-02-17] MEDS: NALOXONE 4 MG NASAL SPRAY MISC (03:35)
== END 2025-02-17 03:35 | disposition home or self-care (01) ==
PROVIDERS: Emergency Medicine; Emergency Provider Emergency Medicine
DX: T43.621A Poisoning by amphetamines, accidental (unintentional), initial encounter (principal); T43.651A Poisoning by methamphetamines accidental (unintentional), initial encounter; R55 Syncope and collapse; R06.02 Shortness of breath
CPT/HCPCS: 70450; 71275; 72125; 74176; 80053; 80305; 80320; 80329; 81001; 82140; 82550; 84484; 85025; 85610; 85730; 93005; 96361; 96374; 96375; 99284; A9270; G0480; J0780; J2405; J7030; Q9967